=== PATIENT | male | born 1960 | race Two or more races ===

== ENCOUNTER 2020-10-20 14:28 | Emergency (ER) | payer BC ==
[~2020-10-20] VITALS: Ht 172.7 cm; Wt 81.6 kg
[~2020-10-20 14:28] MED LIST: ASPI-605 PO; ATOR20TA PO; BIOT25008 PO; FLAX10003 PO; MV,M1TAB2 PO; NICO1PAT28 TD; PANT40TA2 PO; VITA150T PO
--- NOTE | 2020-10-20 14:28 | NUR ---
PT BIB SELF C/O R UPPER BACK PAIN RADIATES TO R ARM. PT IS AAOX4, NOT IN RESPIRATORY DISTRESS, HOOKED TO SUGAR MIXER, KEPT RESTED AND COMFORTABLE. WILL CONTINUE TO MONITOR.
--- NOTE | 2020-10-20 14:58 | NUR ---
IV LINE ESTABLISHED BLOOD DRAWN AND SENT TO LAB.
--- NOTE | 2020-10-20 15:19 | NUR ---
NINO ROBBINS AT BEDSIDE FOR EVAL.
[2020-10-20] MEDS ORDERED: KETOROLAC TROMETHAMINE INJ 30 MG/ML VIAL IV ONE (15:30)
[2020-10-20] MEDS ORDERED: KETOROLAC TROMETHAMINE 15 MG/ML VIAL ONE (15:31)
[2020-10-20] MEDS ORDERED: CYCL5TAB PO (16:13)
[2020-10-20] MEDS ORDERED: NAPR-1009 PO (16:13)
--- NOTE | 2020-10-20 16:33 | NUR ---
IV removed. Catheter intact and site benign. Pressure and 4x4 applied to site. No bleeding noted. Patient discharged to home in stable condition. Written and verbal after care instructions given. Patient verbalizes understanding of instruction.
[2020-10-20 16:34] VITALS: BP 131/67
== END 2020-10-20 16:34 | disposition home or self-care (01) ==
LOC: ER 14:31
DX: M25.511 Pain in right shoulder (principal); M54.10 Radiculopathy, site unspecified; E78.5 Hyperlipidemia, unspecified; I73.9 Peripheral vascular disease, unspecified; F17.200 Nicotine dependence, unspecified, uncomplicated; Z98.890 Other specified postprocedural states; Z79.899 Other long term (current) drug therapy; Z79.82 Long term (current) use of aspirin
CPT/HCPCS: 93005; 96374; 99283; J1885

== ENCOUNTER 2022-09-05 14:41 | Inpatient (IN) | payer BC ==
[~2022-09-05] VITALS: Ht 167.6 cm; Wt 70.3 kg
[~2022-09-05 14:41] MED LIST changes: +CYCL5TAB PO; +NAPR-1009 PO
--- NOTE | 2022-09-05 14:56 | NUR ---
BIBFAMILY "Been having fever/chills/cough/congestion/SAL[place]AN[place] x3days. Also being treated for hives x3wks". AMBULATORY, PLACED ON BED, BREATHING UNLABORED SATURATING AT 96%RA.
[2022-09-05] MEDS ORDERED: methylPREDNISolone SOD SUCC 125 MG/2ML VIAL ONE (15:14)
[2022-09-05] MEDS ORDERED: ALBUTEROL FS 2.5 MG/3 ML VIAL.NEB CONTNEB ONE (15:30)
[2022-09-05] MEDS ORDERED: IPRATROPIUM NEB FS 0.5 MG/2.5 ML AMPUL.NEB NEB ONE (15:30)
[2022-09-05] MEDS ORDERED: Magnesium 1GM/D5W 100ML PREMIX 200 ML IV ONE ×2 (15:30→15:33)
[2022-09-05] MEDS ORDERED: methylPREDNISolone SOD SUCC 125 MG/2ML VIAL IV ONE (15:30)
--- NOTE | 2022-09-05 15:30 | NUR ---
BLOOD DRAWN AND SWAB FOR COVID19 SENT TO LAB
[2022-09-05 15:37] LABS: SITE, VBG Left Radial; VBG COHb 0.6 %; VBG MetHb 0.3 %; VBG O2Hb 91.9 %; VENT MODE, VBG RA
[2022-09-05] MEDS ORDERED: ONDANSETRON HCL/PF 4 MG/2 ML VIAL ONE (15:53)
[2022-09-05] MEDS ORDERED: ONDANSETRON HCL/PF 4 MG/2 ML VIAL IVP ONE (16:00)
[2022-09-05 16:03] LABS: BASOPHILS % (AUTO) 0.4 % (0.0-2.0); HEMATOCRIT 48 % (39-51); LYMPHOCYTES # (AUTO) 1.4 K/uL (0.8-4.8); MEAN CORPUSCULAR HGB CONC 33 g/dl (31.0-36.0); MEAN CORPUSCULAR VOLUME 88 fL (80-96); MONOCYTES # (AUTO) 0.8 K/uL (0.1-1.30); MONOCYTES % (AUTO) 7.4 % (2.0-12.0); NEUTROPHILS # (AUTO) 9.1 K/uL (1.8-8.9); NEUTROPHILS % (AUTO) 80.2 % (43.0-81.0); PLATELET COUNT (AUTO) 166 K/uL (150-450); RED BLOOD CELL COUNT(AUTO) 5.52 MIL/uL (4.5-6.0); WHITE BLOOD COUNT (AUTO) 11.3 K/uL (4.3-11.0)
[2022-09-05] MEDS ORDERED: PRED10TA PO (16:13)
[2022-09-05] MEDS ORDERED: ATOR20TA PO (16:13)
[2022-09-05] MEDS ORDERED: TRAM50TA2 PO (16:13)
[2022-09-05] MEDS ORDERED: FINA5TAB11 PO (16:13)
[2022-09-05] MEDS ORDERED: ALFU10TA10 PO (16:13)
[2022-09-05] MEDS ORDERED: FAMO40TA7 PO (16:13)
[2022-09-05] MEDS ORDERED: HYDR-500 PO (16:13)
[2022-09-05] MEDS ORDERED: MONT10TA22 PO (16:13)
[2022-09-05 16:43] LABS: ALANINE AMINOTRANSFERASE 40 U/L (12-78); ALBUMIN 3.5 g/dL (3.4-5.0); ALKALINE PHOSPHATASE 64 U/L (46-116); ASPARTATE AMINOTRANSFERASE 31 U/L (15-37); BILIRUBIN,DIRECT 0.1 mg/dL (0.0-0.2); BILIRUBIN,TOTAL 0.6 mg/dL (0.2-1.0); CALCIUM, SERUM 8.7 mg/dL (8.5-10.1); CARBON DIOXIDE 26 mmol/L (21-32); CHLORIDE 95 mmol/L (98-107); GLUCOSE 112 mg/dL (74-106); POTASSIUM 3.8 mmol/L (3.5-5.1); SODIUM SERUM 131 mmol/L (136-145); TOTAL PROTEIN, SERUM 7.9 g/dL (6.4-8.2); UREA NITROGEN, BLOOD 13 mg/dL (7-18)
--- NOTE | 2022-09-05 17:44 | NUR ---
[facility] CALLED EXPLOSIVE MAN PAGED.
--- NOTE | 2022-09-05 18:00 | NUR ---
BED ASSIGNED. 110. ADMITTING AWARE
--- NOTE | 2022-09-05 18:24 | NUR ---
REPORT GIVEN TO ROCHELLE SKINNER ROOM 110 FOR RUCHI
--- NOTE | 2022-09-05 18:32 | NUR ---
rn note received report from Tonio GARCÍA RN for continuity of care
--- NOTE | 2022-09-05 18:43 | NUR ---
RN NOTE VITAL SIGNS BP 141/87 HR 76 TEMP 98.4 02 ABOVE 92%
[2022-09-05 19:00] VITALS: BP 141/87
[2022-09-05] MEDS ORDERED: ONDANSETRON HCL/PF 4 MG/2 ML VIAL IVP PRN (19:00)
[2022-09-05] MEDS ORDERED: ACETAMINOPHEN 325 MG TABLET PO PRN (19:00)
[2022-09-05] MEDS ORDERED: MAG HYDROX/AL HYDROX/SIMETH 30 ML UDC PO PRN (19:00)
[2022-09-05] MEDS ORDERED: Z GUARD REMEDY 4 OZ OINT TP PRN (19:00)
[2022-09-05] MEDS ORDERED: TRAMADOL HCL 50 MG TABLET PO PRN (19:00)
[2022-09-05] MEDS ORDERED: ZOLPIDEM TARTRATE 5 MG TABLET PO PRN (19:00)
[2022-09-05] MEDS ORDERED: MAGNESIUM HYDROXIDE 30 ML UDC PO PRN (19:00)
--- NOTE | 2022-09-05 19:28 | NUR ---
RN NOTE RECEIVED PATIENT FROM ER. PT ALERT AND ORIENTED X4. PT ON 2 NASAL CANNULA. PT IS AMBULATORY. PT HAS IV AC.IV PATENT, FLUSHING WELL AND INTACT. PT ON 2 L NASAL CANNULA TOLERATING WELL. ALL SAFETY MEASURES IN PLACE. CALL LIGHT WITHIN REACH. BED LOCKED AT LOWEST POSITION. SIDE RAILS UP X2.BED ALARM ON.PT ON ISOLATION PRECAUTION FOR COVID-19.ENDORSED TO NATURAL RESOURCE SPECIALIST RN FOR CONTINUITY OF CARE.
--- NOTE | 2022-09-05 19:29 | NUR ---
RN NOTES: RECEIVED AWAKE ON BED, A/OX4, KEPT ON SEMI FOWLERS POSITION, AMBULATORY, WITH O2 AT 2L/MIN VIA NC SPO2-92%, NON LABORED BREATHING, NO ABDOMINAL OR STERNAL RETRACTION NOTED,BSLIGHT WHEEZING ON BOTH UPPER LUNG FIELD, WITH BATHROOM PRIVILEGE, FEEL NAUSEATED,HE WAS ADMITTED FROM HOME, RAPID (+) POSITIVE A, IV CANNULA ON RAC G#20, CXR -NO PNEUMOTHORAX, HE RECEIVED SOLU MEDROL IN ER, PATIENT VERBALIZED HE HAD FEVER, CHILLS, OCCASIONAL COUGH (NO PHLEGM) FATIGUE AND FEELING NAUSEATED, PER PATIENT HE TRAVELLED TO [facility] 2 MONTHS AGO, BODY ASSESSMENT DONE, RED RASHES-LIKE HIVES PRESENT IN THE FACIAL AREA, EXTENDING TO THE NECK AND UPPER SHOULDER, THEN BACK OF THE NECK, DOWN TO SHOULDER AND UPPER BACK, NO SIGN OF ITCHING UPON ASSESSMENT.OTHER AREAS OF THE BODY SKIN IS INTACT AND NO OTHER SKIN ISSUES. ORIENTED TO UNIT AND STAFF.
[2022-09-05] MEDS: ENOXAPARIN SODIUM 40 MG/0.4 ML DISP.SYRIN SQ SCH (20:49)
[2022-09-05] MEDS: ATORVASTATIN 10 MG TABLET PO SCH (22:04)
--- NOTE | 2022-09-05 22:38 | NUR ---
RN NOTES: HE COMPLAINED OF FFELING LIKE A HEARTBURN AFTER HE EAT JELLO, HE ASK FOR MAALOX; PRN MEDICATION GIVEN.
--- NOTE | 2022-09-06 00:15 | NUR ---
RN NOTES: -RN CHECK HIM AT FREQUENT INTERVALS ,HE VERBALIZED, HE HAS MILD PAIN, HE SAID "I EASILY GET TIRED, CAN I HAVE SOME TYLENOL PLEASE" OFFERED PAIN MEDICATION, HE REFUSED HE WANTS TYLENOL ONLY. ASSISTED TO USE URINAL AND KEPT CALL LIGHT WITHIN EASY REACH.
--- NOTE | 2022-09-06 06:54 | NUR ---
RN NOTES: AWAKE VERBALIZING HE HAS HEARTBURN IN THE MORNING IF HE DONT EAT FOOD LAST NIGHT, HE ASKED FOR BISCUITS, GIVEN, HE SAID IT HELP RELIEVED THE DISCOMFORT, OFFERED PRN MEDS, HE PREFER TO WAIT FOR HIS MORNING MEDS.REMAINS AFEBRILE, NON LABORED BREATHING, NO SIGN OF RESPIRATORY DISTRESS,FOR LABS THIS MORNING, ASPIRATION PRECAUTION OBSERVED, ENDORSED FOR CONTINUITY OF CARE.
[2022-09-06 06:59] LABS: BASOPHILS % (AUTO) 0.1 % (0.0-2.0); HEMATOCRIT 48 % (39-51); HEMOGLOBIN 16.7 g/dL (13.5-17.5); LYMPHOCYTES # (AUTO) 1.6 K/uL (0.8-4.8); MEAN CORPUSCULAR HGB CONC 34 g/dl (31.0-36.0); MEAN CORPUSCULAR VOLUME 87 fL (80-96); MONOCYTES # (AUTO) 1.2 K/uL (0.1-1.30); MONOCYTES % (AUTO) 9.4 % (2.0-12.0); NEUTROPHILS # (AUTO) 9.8 K/uL (1.8-8.9); NEUTROPHILS % (AUTO) 77.5 % (43.0-81.0); PLATELET COUNT (AUTO) 195 K/uL (150-450); RED BLOOD CELL COUNT(AUTO) 5.56 MIL/uL (4.5-6.0); WHITE BLOOD COUNT (AUTO) 12.6 K/uL (4.3-11.0)
[2022-09-06 07:11] LABS: CALCIUM, SERUM 8.7 mg/dL (8.5-10.1); MAGNESIUM 2.6 mg/dL (1.8-2.4); PHOSPHORUS 4.3 mg/dL (2.5-4.9); POTASSIUM 4.1 mmol/L (3.5-5.1)
[2022-09-06] MEDS: PANTOPRAZOLE 40 MG TABLET.DR PO SCH (07:51)
[2022-09-06] MEDS: DEXAMETHASONE SOD PHOSPHATE 10 MG/ML VIAL IV SCH (08:34)
[2022-09-06] MEDS: FINASTERIDE (5 MG) 5 MG TABLET PO SCH (08:34)
[2022-09-06] MEDS: MONTELUKAST SODIUM (10MG) 10 MG TABLET PO SCH (08:34)
[2022-09-06] MEDS: hydrOXYzine 10 MG TABLET PO SCH ×2 (08:39→16:28)
[2022-09-06] MEDS ORDERED: ALFUZOSIN HCL PO SCH (09:00)
[2022-09-06] MEDS ORDERED: diphenhydrAMINE HCL ELIX 25 MG/10 ML UDC PO PRN (10:30)
[2022-09-06] MEDS: FAMOTIDINE (20 MG) 20 MG TABLET PO SCH ×2 (11:01→20:42)
--- NOTE | 2022-09-06 18:48 | NUR ---
RN CLOSING NOTES AWAKE IN BED ALERT ORIENTED X4. VERBALIZING HIS NEEDS, PATIENT HAS HEART BURN MEDICATION PEPCID 20MG. PATIENT ON NC O2 SAT 95% TO 97%. OFFERED PRN MEDS IN THE MORNING ZOFRAN NAUSEA IMPROVED. PATIENT'S DAUGHTER CAME TODAY WITH MASK N95 JUST GAVE HIS DAD SOME FRUITS AND ALKALINE WATER AND LEFT IN 5 MINUTES. REMAINS AFEBRILE, NON LABORED BREATHING, NO SIGN OF RESPIRATORY DISTRESS, DR. HAWK SAID DR. ALDANA THE PULMONARY DOCTOR HAS TO SEE HIM, CHEST CT IS CLEAR. ASPIRATION PRECAUTION OBSERVED, ENDORSED FOR CONTINUITY OF CARE TO THE CLAIM ATTORNEY NURSE.
[2022-09-06 20:00] VITALS: BP 139/84
--- NOTE | 2022-09-06 20:00 | NUR ---
RN OPENING NOTE RECEIVED PATIENT IN BED; AWAKE, A/O X 4. ON O2 INHALATION @ 2 LPM VIA NASAL CANNULA; TOLERATING WELL. SATING 925 BREATHING EVEN AND NONLABORED. NOT IN ANY FORM OF RESPIRATORY DISTRESS. DENIES ANY PAIN OR DISCOMFORT AT THIS TIME. WITH IV ACCESS ON RIGHT ANTECUBITAL 20G; PATENT, INTACT AND SALINE LOCKED. ABLE TO MAKE NEEDS KNOWN. SAFETY MEASURES IMPLEMENTED: CALL LIGHT AND TABLE WITHIN REACH, SIDE RAILS UP X 2, BED IN LOWEST LOCKED POSITION. WILL CONTINUE TO MONITOR.
[2022-09-06 20:09] LABS: BILIRUBIN,URINE NEGATIVE (NEGATIVE); COLOR,URINE YELLOW (YELLOW); LEUKOCYTE ESTERASE ,URINE NEGATIVE (NEGATIVE); NITRITE, URINE NEGATIVE (NEGATIVE); PROTEIN,URINE TRACE mg/dl (NEGATIVE); UGLUCOSE NEGATIVE (NEGATIVE); UROBILINOGEN,URINE 0.2 EU/dL (0.2)
[2022-09-06 20:33] LABS: BACTERIA,URINE Few /HPF (None Seen); SQUAMOUS EPITHELIAL CELL,UR Few /HPF (None Seen); WBC,URINE 0-2 /HPF (0-3)
[2022-09-06] MEDS: ENOXAPARIN SODIUM 40 MG/0.4 ML DISP.SYRIN SQ SCH (20:41)
[2022-09-06] MEDS: ATORVASTATIN 10 MG TABLET PO SCH (21:51)
[2022-09-07 04:00] VITALS: BP 125/73
[2022-09-07 06:24] LABS: HEMATOCRIT 47 % (39-51); HEMOGLOBIN 15.7 g/dL (13.5-17.5); LYMPHOCYTES # (AUTO) 1.8 K/uL (0.8-4.8); LYMPHOCYTES % (AUTO) 13.4 % (20.0-44.0); MEAN CORPUSCULAR HGB CONC 33 g/dl (31.0-36.0); MEAN CORPUSCULAR VOLUME 88 fL (80-96); MONOCYTES # (AUTO) 1.3 K/uL (0.1-1.30); MONOCYTES % (AUTO) 9.9 % (2.0-12.0); NEUTROPHILS # (AUTO) 10.4 K/uL (1.8-8.9); NEUTROPHILS % (AUTO) 76.7 % (43.0-81.0); PLATELET COUNT (AUTO) 186 K/uL (150-450); RED BLOOD CELL COUNT(AUTO) 5.39 MIL/uL (4.5-6.0); WHITE BLOOD COUNT (AUTO) 13.6 K/uL (4.3-11.0)
[2022-09-07 06:35] LABS: CALCIUM, SERUM 8.5 mg/dL (8.5-10.1); MAGNESIUM 2.5 mg/dL (1.8-2.4); PHOSPHORUS 4.3 mg/dL (2.5-4.9); POTASSIUM 4.1 mmol/L (3.5-5.1)
--- NOTE | 2022-09-07 06:35 | NUR ---
RN CLOSING NOTES AWAKE IN BED ALERT ORIENTED X4. VERBALIZING HIS NEEDS, ON NC O2 SAT 92%. NO SOB NO DISTRESS NOTED ,NON LABORED BREATHING, NO SIGN OF RESPIRATORY DISTRESS, ENDORSED TO RN DAY SHIFT FOR CONTINUITY OF CARE .
--- NOTE | 2022-09-07 07:33 | NUR ---
MS RN NOTE NOTES AWAKE IN BED ,ALERT ORIENTED X4. VERBALIZING HIS NEEDS, ON NC O2L NC ,NO SOB NOTED AT THIS TIME,.RESPIRATION NON LABORED , NO SIGN OF RESPIRATORY DISTRESS, RT A HL INTACT AND FLUSHED WELL , WILL CONT TO MONITOR CLOSELY
[2022-09-07] MEDS: PANTOPRAZOLE 40 MG TABLET.DR PO SCH (07:48)
[2022-09-07] MEDS: MONTELUKAST SODIUM (10MG) 10 MG TABLET PO SCH (08:09)
[2022-09-07] MEDS: FINASTERIDE (5 MG) 5 MG TABLET PO SCH (08:09)
[2022-09-07] MEDS: FAMOTIDINE (20 MG) 20 MG TABLET PO SCH ×2 (08:09→21:12)
[2022-09-07] MEDS: hydrOXYzine 10 MG TABLET PO SCH ×2 (08:09→16:41)
[2022-09-07] MEDS: DEXAMETHASONE SOD PHOSPHATE 10 MG/ML VIAL IV SCH (08:10)
[2022-09-07 09:00] VITALS: BP 119/74
--- NOTE | 2022-09-07 10:39 | NUR ---
MS RN NOTE ROUNDS MADE , ALL NEEDS ATTENDED, RESTING COMFORTABLY IN BED AT THIS TIME
--- NOTE | 2022-09-07 12:15 | NUR ---
LIME SLUDGE MIXER NOTE DR ANDERSON INDUSTRIAL AUTOMATION ENGINEER WANTS TO START ON PAXLOVID PO BUT PHARMACY DONT HAVE THIS MEDS , SPOKE WITH DONNY FROM PHARMACY STATED THAT TOLD DR ANDERSON THAT PAXLOVID NOT AVAILABLE WILL F\U
--- NOTE | 2022-09-07 13:06 | NUR ---
MS RN NOTE DR GRIER MADE ROUNDS, UPDATED PATIENT CONDITION
--- NOTE | 2022-09-07 15:49 | NUR ---
MS RN NOTE C\O CONSTIPATION, MOM GIVEN ORDERED
[2022-09-07 16:00] VITALS: BP 128/74
--- NOTE | 2022-09-07 18:10 | NUR ---
ms rn note dr ghosh networks computer consultant called with order chest x ray tomorrow and possible discharge home with paxlovid po tab as outpatient
--- NOTE | 2022-09-07 18:31 | NUR ---
MS RN NOTE PATENT IN BED , ALERT, ORIENTED, ON 2L NC, NO SOB NOTED AT THIS TIME, RT AC HL INTACT AND FLUSHED WELL , BED IN LOWEST AND LOCKED POSITION , SAFETY MEASURE IMPLEMENTED, KEEP CLEAN DRY , CALL LIGHT WITHIN REACH , WILL CONT TO MONITOR CLOSELY
[2022-09-07 20:00] VITALS: BP 107/74
--- NOTE | 2022-09-07 20:00 | NUR ---
LOAD DISPATCHER NOTE PT IN BED AWAKE. A/O X 4, NO SOB, NO DISTRESS OR DISCOMFORT NOTED. DENIES PAIN. O2 SAT ON ROOM AIR 94%. ON TELE SR 76. RAC SL #20G INTACT AND PATENT. SIDE RAILS UP X 2 AND CALL LIGHT WITHIN REACH. VSS. CONTINUE TO MONITOR HIM.
[2022-09-07] MEDS: ATORVASTATIN 10 MG TABLET PO SCH (21:12)
[2022-09-07] MEDS: ENOXAPARIN SODIUM 40 MG/0.4 ML DISP.SYRIN SQ SCH (21:14)
[2022-09-08] VITALS: BP 112/70
[2022-09-08 04:00] VITALS: BP 122/73
--- NOTE | 2022-09-08 06:41 | NUR ---
LOCAL OPERATOR NOTE PT IN BED ASLEEP, AROUSABLE. NO DISTRESS OR DISCOMFORT NOTED. DENIES PAIN. ON TELE SR 92. ALL NEEDS ATTENDED. VSS. WILL ENDORSE TO DAY SHIFT NURSE FOR CONTINUE TO CARE.
--- NOTE | 2022-09-08 07:56 | NUR ---
RN OPENING NOTE RECEIVED PATIENT IN BED; AWAKE, A/O X 4, ABLE TO MAKE NEEDS KNOWN. ON O2 @ 2 LPM VIA NASAL CANNULA; TOLERATING WELL, O2 SAT @98%. BREATHING EVEN AND NONLABORED, NO S/S OF RESPIRATORY DISTRESS. DENIES ANY PAIN OR DISCOMFORT AT THIS TIME. IV ACCESS AT R AC #20,PATENT, INTACT AND SALINE LOCKED. . SAFETY MEASURES IMPLEMENTED: CALL LIGHT AND TABLE WITHIN REACH, SIDE RAILS UP X 2, BED IN LOWEST LOCKED POSITION, WILL CONT WITH PLAN OF CARE.
[2022-09-08 08:03] LABS: BASOPHILS % (AUTO) 0.1 % (0.0-2.0); EOSINOPHILS % (AUTO) 0.1 % (0.0-6.0); HEMATOCRIT 46 % (39-51); HEMOGLOBIN 15.7 g/dL (13.5-17.5); LYMPHOCYTES # (AUTO) 2.3 K/uL (0.8-4.8); LYMPHOCYTES % (AUTO) 21.5 % (20.0-44.0); MEAN CORPUSCULAR HGB CONC 34 g/dl (31.0-36.0); MEAN CORPUSCULAR VOLUME 88 fL (80-96); MONOCYTES # (AUTO) 1.4 K/uL (0.1-1.30); MONOCYTES % (AUTO) 13.2 % (2.0-12.0); NEUTROPHILS # (AUTO) 6.9 K/uL (1.8-8.9); NEUTROPHILS % (AUTO) 65.1 % (43.0-81.0); PLATELET COUNT (AUTO) 184 K/uL (150-450); RED BLOOD CELL COUNT(AUTO) 5.27 MIL/uL (4.5-6.0); WHITE BLOOD COUNT (AUTO) 10.6 K/uL (4.3-11.0)
[2022-09-08 08:10] LABS: CALCIUM, SERUM 8.7 mg/dL (8.5-10.1); CREATININE 0.9 mg/dL (0.6-1.3); MAGNESIUM 2.5 mg/dL (1.8-2.4); PHOSPHORUS 3.7 mg/dL (2.5-4.9); POTASSIUM 4.1 mmol/L (3.5-5.1)
[2022-09-08] MEDS: FAMOTIDINE (20 MG) 20 MG TABLET PO SCH (08:24)
[2022-09-08] MEDS: PANTOPRAZOLE 40 MG TABLET.DR PO SCH (08:24)
[2022-09-08] MEDS: MONTELUKAST SODIUM (10MG) 10 MG TABLET PO SCH (08:24)
[2022-09-08] MEDS: FINASTERIDE (5 MG) 5 MG TABLET PO SCH (08:24)
[2022-09-08] MEDS: DEXAMETHASONE SOD PHOSPHATE 10 MG/ML VIAL IV SCH (08:25)
[2022-09-08] MEDS: hydrOXYzine 10 MG TABLET PO SCH (08:29)
--- NOTE | 2022-09-08 12:55 | NUR ---
RN DC NOTES: PT LEFT THE FLOOR AMA. RN EXPLAINED MULTIPLE TIMES THAT HOSPITALIST IS AWARE THAT PT IS STABLE FOR DC, WILL JUST NEED ORDER, RN IS WORKING ON DC DOCS. PT STATES "I CAN'T WAIT ANY MORE, I NEED TO LEAVE, I WILL PULL OUT MY IV IF YOU DON'T". RN REMOVED IV ACCESS AND TELE MONITOR. ADVISED PT OF CONSEQUENCES OF LEAVING AMA, ASKED PT TO WAIT FOR DC ORDERS AND DOCUMENTS. PT REFUSED TO WAIT; PT REFUSED TO SIGN AMA DOCS. PT LEFT UNIT ON FOOT, STATES " I WILL CALL AN UBER".
== END 2022-09-08 13:00 | disposition left against medical advice (07) | DRG 871 ==
LOC: ER 15:01 → MEDSG1 18:31 → TELE1 09-07 20:26
PROVIDERS: ADMIT Student in an Organized Health Care Education/Training Program; ATTEND Student in an Organized Health Care Education/Training Program
DX: A41.89 Other specified sepsis (principal); J96.91 Respiratory failure, unspecified with hypoxia; U07.1 COVID-19; E87.1 Hypo-osmolality and hyponatremia; F17.200 Nicotine dependence, unspecified, uncomplicated; E78.5 Hyperlipidemia, unspecified; I73.9 Peripheral vascular disease, unspecified; M19.90 Unspecified osteoarthritis, unspecified site; Z98.890 Other specified postprocedural states; K25.9 Gastric ulcer, unspecified as acute or chronic, without hemorrhage or perforation; Z79.82 Long term (current) use of aspirin; Z79.899 Other long term (current) drug therapy; Z87.19 Personal history of other diseases of the digestive system; I10 Essential (primary) hypertension; F10.91 Alcohol use, unspecified, in remission; E83.41 Hypermagnesemia; Z78.9 Other specified health status
CPT/HCPCS: 36415; 36600; 71045-TC; 80048-TC; 80076-TC; 81001; 82803-TC; 83735-TC; 83880; 84100-TC; 84484-TC; 85025-TC; 85652-TC; 87081-TC; 94799-TC; C9803; G0378; J1100; J1650; J2405; J2930; J3475; Q0163; Q0177